=== PATIENT | female | born 1955 | race Caucasian/White ===

== ENCOUNTER 2023-04-29 08:02 | Inpatient (IN) | payer MEDICARE, OTHER ==
[2023-04-29] MEDS ORDERED: Bacitracin 1 PK ONE (08:26)
[2023-04-29 09:34] LABS: #Monocytes 0.7 10x3/uL (0.0-1.1); #Neutrophils 2.8 10x3/uL (1.5-8.4); %Basophils 0.4 % (0.0-2.0); %Eosinophils 0.2 % (0.0-6.0); %Lymphocytes 24.1 % (18.0-47.0); %Monocytes 15.4 % (0.0-10.0); %Neutrophils 59.7 % (40.0-75.0); Hematocrit 41.6 % (34.9-44.5); Hemoglobin 13.1 g/dL (12.0-15.5); Mean Corpuscular HGB CONC 31.5 g/dL (32.0-36.0); Mean Corpuscular Hemoglobin 28.1 pg (27.0-33.0); Mean Corpuscular Volume 89.1 fl (81.6-98.3); Mean Platelet Volume 10.5 fl (7.4-10.4); Platelet Count 190 10x3/uL (150-450); RBC Distribution Width 14.1 % (11.5-14.5); Red Blood Cell (RBC) Count 4.67 10x6/uL (3.90-5.03); White Blood Cell (WBC) Count 4.7 10x3/uL (3.5-10.5)
[2023-04-29 09:55] LABS: Anion Gap 15 mmol/L (10-20); BUN (Urea Nitrogen) 26 mg/dL (9.8-20.1); Calc. Creatinine Clearance 0 mL/min (70-130); Carbon Dioxide 30 mmol/L (23-31); Chloride 99 mmol/L (98-107); Estimated GFR 93; Potassium 4.7 mmol/L (3.5-5.1); Sodium 139 mmol/L (136-145)
[2023-04-29 09:56] LABS: ALT (SGPT) 20 U/L (8-55); AST (SGOT) 22 U/L (5-34); Albumin 3.8 g/dL (3.4-4.8); Alkaline Phosphatase 76 U/L (40-110); Bilirubin, Total 0.2 mg/dL (0.2-1.2); Calcium 9.2 mg/dL (7.6-10.4); Globulin 3.1 g/dL (2.4-3.5); Glucose 110 mg/dL (80-115); Protein, Total 6.9 g/dL (5.8-8.1)
[2023-04-29 10:11] LABS: Bilirubin Neg (Negative); Blood, Urine 25 (Negative); Glucose, Urine (Dipstick) Normal (Negative); Ketone, Urine Negative (Negative); Leukocyte 500 (Negative); Nitrite Positive (Negative); Protein, Urine (Dipstick) 15 mg/dl (Neg-Trace); Urobilinogen Normal mg/dL (Less than 2)
[2023-04-29 10:25] LABS: Clarity Cloudy (Clear)
[2023-04-29 10:30] LABS: CAUTI Indications for Culture Alt mental st,lethar; RBC/HPF 0-3 HPF (0-3); WBC/HPF 21-50 HPF (0-3)
[2023-04-29 10:31] LABS: Bacteria/HPF 4+ HPF (None Seen); Renal Epithelial 0-3 HPF (None Seen); Squamous Epithelial 0-3 HPF (0-3); Transitional Epithelial 0-3 HPF (None Seen)
[2023-04-29 10:32] LABS: Urine Culture Reflex Yes Yes
[2023-04-29] MEDS ORDERED: cefTRIAXone (ROCEPHIN) 2 GM VIAL ONE (10:42)
[2023-04-29] MEDS ORDERED: Ondansetron ODT 4 MG TAB PO PRN (13:04)
[2023-04-29] MEDS ORDERED: HYDROcodone/Acetaminophen 5/325 mg Tablet PO PRN (13:04)
[2023-04-29] MEDS ORDERED: Acetaminophen 650 MG Suppository PR PRN (13:04)
[2023-04-29] MEDS ORDERED: Senokot S 8.6-50 MG TAB PO PRN (13:04)
[2023-04-29 15:20] VITALS: BMI 11.2
[2023-04-29] MEDS: HYDROcodone/Acetaminophen 5/325 mg Tablet PO PRN ×2 (15:32→21:16)
[2023-04-29] MEDS ORDERED: QUEtiapine 25 MG TAB PO SCH ×2 (16:15→21:00)
[2023-04-29] MEDS ORDERED: QUEtiapine 25 MG TAB PER TUBE SCH (17:00)
[2023-04-29] MEDS: QUEtiapine 25 MG TAB PER TUBE SCH (20:35)
[2023-04-29] MEDS ORDERED: Famotidine 20 MG TAB PO SCH (21:00)
[2023-04-29] MEDS: Acetaminophen 325 MG TAB PO PRN (23:00)
[2023-04-30 04:31] LABS: Anion Gap 17 mmol/L (10-20); BUN (Urea Nitrogen) 17 mg/dL (9.8-20.1); Calc. Creatinine Clearance 36 mL/min (70-130); Calcium 8.5 mg/dL (7.8-10.44); Carbon Dioxide 23 mmol/L (23-31); Chloride 104 mmol/L (98-107); Estimated GFR 95; Glucose 103 mg/dL (80-115); Potassium 5.2 mmol/L (3.5-5.1); Sodium 139 mmol/L (136-145)
[2023-04-30 04:53] LABS: #Neutrophils 2.3 10x3/uL (1.5-8.4); %Basophils 0.8 % (0.0-2.0); %Eosinophils 0.8 % (0.0-6.0); %Lymphocytes 32.2 % (18.0-47.0); %Monocytes 19.7 % (0.0-10.0); %Neutrophils 44.8 % (40.0-75.0); Hemoglobin 11.5 g/dL (12.0-15.5); Mean Corpuscular HGB CONC 31.9 g/dL (32.0-36.0); Mean Corpuscular Volume 87.6 fl (81.6-98.3); Mean Platelet Volume 11.6 fl (7.4-10.4); Platelet Count 168 10x3/uL (150-450); RBC Distribution Width 13.9 % (11.5-14.5); Red Blood Cell (RBC) Count 4.11 10x6/uL (3.90-5.03); White Blood Cell (WBC) Count 5.2 10x3/uL (3.5-10.5)
[2023-04-30] MEDS: HYDROcodone/Acetaminophen 5/325 mg Tablet PO PRN ×2 (08:31→18:49)
[2023-04-30] MEDS: cefTRIAXone\\ROCEPHIN 1 GM in Sodium Chloride 0.9% 100 ML IVPB SCH (11:48)
[2023-04-30] MEDS: Valproate Sodium 250 mg/5 ml UD Cup PO SCH ×2 (16:33→23:46)
[2023-04-30] MEDS: QUEtiapine 100 MG TAB PO SCH ×2 (16:34→23:37)
[2023-04-30] MEDS: Acetaminophen 325 MG TAB PO PRN (16:34)
[2023-04-30] MEDS: Methocarbamol 500 MG TAB PO SCH ×2 (18:14→23:45)
[2023-04-30] MEDS ORDERED: Famotidine 20 MG TAB PO SCH (21:00)
[2023-04-30] MEDS: QUEtiapine 25 MG TAB PER TUBE SCH (23:37)
[2023-04-30] MEDS: Lacosamide 50 mg Tablet PO SCH (23:46)
[2023-05-01 07:05] LABS: #Eosinphils 0.1 10x3/uL (0.0-0.5); #Monocytes 0.3 10x3/uL (0.0-1.1); #Neutrophils 1.4 10x3/uL (1.5-8.4); %Basophils 0.7 % (0.0-2.0); %Eosinophils 2.1 % (0.0-6.0); %Lymphocytes 36.1 % (18.0-47.0); %Monocytes 11.8 % (0.0-10.0); Hematocrit 36.1 % (34.9-44.5); Hemoglobin 11.2 g/dL (12.0-15.5); Mean Corpuscular Hemoglobin 27.7 pg (27.0-33.0); Mean Corpuscular Volume 89.4 fl (81.6-98.3); Mean Platelet Volume 10.9 fl (7.4-10.4); Platelet Count 155 10x3/uL (150-450); RBC Distribution Width 13.8 % (11.5-14.5); Red Blood Cell (RBC) Count 4.04 10x6/uL (3.90-5.03); White Blood Cell (WBC) Count 2.9 10x3/uL (3.5-10.5)
[2023-05-01 07:13] LABS: Anion Gap 12 mmol/L (10-20); BUN (Urea Nitrogen) 15 mg/dL (9.8-20.1); Calc. Creatinine Clearance 37 mL/min (70-130); Calcium 8.5 mg/dL (7.8-10.44); Carbon Dioxide 28 mmol/L (23-31); Chloride 103 mmol/L (98-107); Estimated GFR 96; Glucose 89 mg/dL (80-115); Potassium 4.3 mmol/L (3.5-5.1); Sodium 139 mmol/L (136-145)
[2023-05-01] MEDS: Valproate Sodium 250 mg/5 ml UD Cup PO SCH ×3 (09:39→21:33)
[2023-05-01] MEDS: Calcium Carbonate 500 MG ChewTAB PO SCH (09:39)
[2023-05-01] MEDS: QUEtiapine 100 MG TAB PO SCH ×3 (09:39→21:34)
[2023-05-01] MEDS: cefTRIAXone\\ROCEPHIN 1 GM in Sodium Chloride 0.9% 100 ML IVPB SCH (10:00)
[2023-05-01] MEDS ORDERED: Lorazepam 2 MG/ML VIAL SLOW IVP PRN (10:32)
[2023-05-01] MEDS ORDERED: Meropenem 1 GM in Sodium Chloride 0.9% 100 ML IVPB SCH ×2 (14:00→15:00)
[2023-05-01] MEDS: Lacosamide 50 mg Tablet PO SCH ×2 (14:34→22:56)
[2023-05-01] MEDS: Clopidogrel Bisulfate 75 MG TAB PO SCH (14:34)
[2023-05-01] MEDS: Methocarbamol 500 MG TAB PO SCH ×3 (14:35→21:34)
[2023-05-01] MEDS: QUEtiapine 25 MG TAB PER TUBE SCH (21:34)
[2023-05-02] MEDS: Meropenem 1 GM in Sodium Chloride 0.9% 100 ML IVPB SCH ×2 (01:05→14:05)
[2023-05-02 05:29] LABS: Anion Gap 11 mmol/L (10-20); BUN (Urea Nitrogen) 10 mg/dL (9.8-20.1); Calc. Creatinine Clearance 37 mL/min (70-130); Calcium 8.8 mg/dL (7.8-10.44); Carbon Dioxide 29 mmol/L (23-31); Chloride 105 mmol/L (98-107); Estimated GFR 96; Glucose 78 mg/dL (80-115); Potassium 4.4 mmol/L (3.5-5.1); Sodium 141 mmol/L (136-145)
[2023-05-02 05:39] LABS: #Monocytes 0.5 10x3/uL (0.0-1.1); #Neutrophils 1.5 10x3/uL (1.5-8.4); %Basophils 0.6 % (0.0-2.0); %Eosinophils 0.9 % (0.0-6.0); %Monocytes 15.1 % (0.0-10.0); %Neutrophils 44.4 % (40.0-75.0); Hematocrit 40.4 % (34.9-44.5); Hemoglobin 12.7 g/dL (12.0-15.5); Mean Corpuscular HGB CONC 31.4 g/dL (32.0-36.0); Mean Corpuscular Hemoglobin 28.1 pg (27.0-33.0); Mean Corpuscular Volume 89.4 fl (81.6-98.3); Platelet Count 177 10x3/uL (150-450); RBC Distribution Width 13.9 % (11.5-14.5); Red Blood Cell (RBC) Count 4.52 10x6/uL (3.90-5.03); White Blood Cell (WBC) Count 3.3 10x3/uL (3.5-10.5)
[2023-05-02] MEDS: Lacosamide 50 mg Tablet PO SCH ×2 (10:33→21:34)
[2023-05-02] MEDS: QUEtiapine 100 MG TAB PO SCH ×3 (10:34→21:34)
[2023-05-02] MEDS: Valproate Sodium 250 mg/5 ml UD Cup PO SCH ×3 (10:34→21:35)
[2023-05-02] MEDS: Clopidogrel Bisulfate 75 MG TAB PO SCH (10:34)
[2023-05-02] MEDS: Calcium Carbonate 500 MG ChewTAB PO SCH (10:34)
[2023-05-02] MEDS: Methocarbamol 500 MG TAB PO SCH ×3 (14:04→21:35)
[2023-05-02] MEDS: Acetaminophen 325 MG TAB PO PRN (16:17)
[2023-05-03] MEDS: Meropenem 1 GM in Sodium Chloride 0.9% 100 ML IVPB SCH ×2 (01:10→13:22)
[2023-05-03 05:30] LABS: #Eosinphils 0.1 10x3/uL (0.0-0.5); #Monocytes 0.4 10x3/uL (0.0-1.1); #Neutrophils 2.7 10x3/uL (1.5-8.4); %Basophils 0.5 % (0.0-2.0); %Eosinophils 2.6 % (0.0-6.0); %Lymphocytes 22.4 % (18.0-47.0); %Monocytes 9.1 % (0.0-10.0); %Neutrophils 65.2 % (40.0-75.0); Hematocrit 39.5 % (34.9-44.5); Hemoglobin 12.7 g/dL (12.0-15.5); Mean Corpuscular HGB CONC 32.2 g/dL (32.0-36.0); Mean Corpuscular Hemoglobin 28.3 pg (27.0-33.0); Mean Platelet Volume 10.4 fl (7.4-10.4); Platelet Count 188 10x3/uL (150-450); RBC Distribution Width 13.8 % (11.5-14.5); Red Blood Cell (RBC) Count 4.49 10x6/uL (3.90-5.03); White Blood Cell (WBC) Count 4.2 10x3/uL (3.5-10.5)
[2023-05-03 05:45] LABS: Anion Gap 14 mmol/L (10-20); BUN (Urea Nitrogen) 17 mg/dL (9.8-20.1); Calc. Creatinine Clearance 36 mL/min (70-130); Calcium 8.9 mg/dL (7.8-10.44); Carbon Dioxide 30 mmol/L (23-31); Chloride 102 mmol/L (98-107); Estimated GFR 95; Glucose 83 mg/dL (80-115); Potassium 4.5 mmol/L (3.5-5.1); Sodium 141 mmol/L (136-145)
[2023-05-03] MEDS: HYDROcodone/Acetaminophen 5/325 mg Tablet PO PRN ×2 (05:53→13:12)
[2023-05-03] MEDS: Clopidogrel Bisulfate 75 MG TAB PO SCH (08:46)
[2023-05-03] MEDS: Calcium Carbonate 500 MG ChewTAB PO SCH (08:46)
[2023-05-03] MEDS: Methocarbamol 500 MG TAB PO SCH ×3 (08:47→21:00)
[2023-05-03] MEDS: Valproate Sodium 250 mg/5 ml UD Cup PO SCH ×3 (08:55→20:58)
[2023-05-03] MEDS ORDERED: Polyethylene Glycol 3350 17 GM Packet PO SCH (09:00)
[2023-05-03] MEDS ORDERED: QUEtiapine 100 MG TAB PO SCH (09:00)
[2023-05-03] MEDS: Lacosamide 50 mg Tablet PO SCH ×2 (09:08→20:58)
[2023-05-03] MEDS: QUEtiapine 100 MG TAB PO SCH ×2 (14:42→21:00)
[2023-05-03] MEDS: Acetaminophen 325 MG TAB PO PRN (20:59)
[2023-05-04] MEDS: Meropenem 1 GM in Sodium Chloride 0.9% 100 ML IVPB SCH ×2 (01:07→12:52)
[2023-05-04] MEDS: Ondansetron PF 4 MG/2 ML Vial IVP PRN ×2 (02:17→12:51)
[2023-05-04] MEDS: Acetaminophen 325 MG TAB PO PRN ×5 (02:19→22:07)
[2023-05-04 05:31] LABS: #Eosinphils 0.2 10x3/uL (0.0-0.5); #Monocytes 0.4 10x3/uL (0.0-1.1); #Neutrophils 2.5 10x3/uL (1.5-8.4); %Basophils 0.2 % (0.0-2.0); %Eosinophils 5.4 % (0.0-6.0); %Lymphocytes 22.2 % (18.0-47.0); %Monocytes 9.6 % (0.0-10.0); %Neutrophils 62.4 % (40.0-75.0); Hematocrit 36.7 % (34.9-44.5); Hemoglobin 11.3 g/dL (12.0-15.5); Mean Corpuscular HGB CONC 30.8 g/dL (32.0-36.0); Mean Corpuscular Hemoglobin 27.4 pg (27.0-33.0); Mean Corpuscular Volume 89.1 fl (81.6-98.3); Mean Platelet Volume 10.1 fl (7.4-10.4); Platelet Count 172 10x3/uL (150-450); RBC Distribution Width 13.8 % (11.5-14.5); Red Blood Cell (RBC) Count 4.12 10x6/uL (3.90-5.03); White Blood Cell (WBC) Count 4.1 10x3/uL (3.5-10.5)
[2023-05-04 05:34] LABS: Anion Gap 14 mmol/L (10-20); BUN (Urea Nitrogen) 13 mg/dL (9.8-20.1); Calc. Creatinine Clearance 36 mL/min (70-130); Calcium 8.7 mg/dL (7.8-10.44); Carbon Dioxide 31 mmol/L (23-31); Chloride 102 mmol/L (98-107); Estimated GFR 95; Glucose 80 mg/dL (80-115); Magnesium 2.1 mg/dL (1.6-2.6); Potassium 4.6 mmol/L (3.5-5.1); Sodium 142 mmol/L (136-145)
[2023-05-04 05:36] LABS: Phosphorus 3.5 mg/dL (2.3-4.7)
[2023-05-04] MEDS: Lacosamide 50 mg Tablet PO SCH ×2 (07:28→22:09)
[2023-05-04] MEDS: Valproate Sodium 250 mg/5 ml UD Cup PO SCH ×3 (07:28→22:07)
[2023-05-04] MEDS: Calcium Carbonate 500 MG ChewTAB PO SCH (07:28)
[2023-05-04] MEDS: Clopidogrel Bisulfate 75 MG TAB PO SCH (07:29)
[2023-05-04] MEDS: Methocarbamol 500 MG TAB PO SCH ×3 (07:29→22:09)
[2023-05-04] MEDS: Folic Acid 1 MG TAB PER TUBE SCH (07:29)
[2023-05-04] MEDS: QUEtiapine 100 MG TAB PO SCH ×3 (07:29→22:09)
[2023-05-04] MEDS: Cyanocobalamin (Vitamin B-12) 1,000 MCG TAB PER TUBE SCH (07:30)
[2023-05-04] MEDS: Heparin 5,000 UNITS/ML VIAL SC SCH ×2 (07:46→22:10)
[2023-05-04] MEDS: Lorazepam 0.5 MG TAB PO PRN (10:46)
[2023-05-04] MEDS: Thiamine HCl 200 MG/2 ML VIAL SLOW IVP SCH (12:51)
[2023-05-05] MEDS: Meropenem 1 GM in Sodium Chloride 0.9% 100 ML IVPB SCH ×2 (01:20→11:34)
[2023-05-05] MEDS: Acetaminophen 325 MG TAB PO PRN (02:14)
[2023-05-05 05:22] LABS: #Eosinphils 0.2 10x3/uL (0.0-0.5); #Monocytes 0.3 10x3/uL (0.0-1.1); #Neutrophils 1.5 10x3/uL (1.5-8.4); %Basophils 0.6 % (0.0-2.0); %Eosinophils 6.4 % (0.0-6.0); %Lymphocytes 43.1 % (18.0-47.0); %Neutrophils 40.6 % (40.0-75.0); Hematocrit 36.1 % (34.9-44.5); Hemoglobin 11.4 g/dL (12.0-15.5); Mean Corpuscular HGB CONC 31.6 g/dL (32.0-36.0); Mean Corpuscular Hemoglobin 27.9 pg (27.0-33.0); Mean Corpuscular Volume 88.5 fl (81.6-98.3); Mean Platelet Volume 10.2 fl (7.4-10.4); Platelet Count 183 10x3/uL (150-450); RBC Distribution Width 13.7 % (11.5-14.5); Red Blood Cell (RBC) Count 4.08 10x6/uL (3.90-5.03); White Blood Cell (WBC) Count 3.6 10x3/uL (3.5-10.5)
[2023-05-05 05:40] LABS: Anion Gap 12 mmol/L (10-20); BUN (Urea Nitrogen) 13 mg/dL (9.8-20.1); Calc. Creatinine Clearance 35 mL/min (70-130); Calcium 8.9 mg/dL (7.8-10.44); Carbon Dioxide 31 mmol/L (23-31); Chloride 103 mmol/L (98-107); Estimated GFR 94; Glucose 61 mg/dL (80-115); Potassium 4.5 mmol/L (3.5-5.1); Sodium 141 mmol/L (136-145)
[2023-05-05] MEDS: Calcium Carbonate 500 MG ChewTAB PO SCH (08:06)
[2023-05-05] MEDS: Lorazepam 0.5 MG TAB PO PRN ×2 (08:06→13:44)
[2023-05-05] MEDS: QUEtiapine 100 MG TAB PO SCH ×2 (08:06→13:43)
[2023-05-05] MEDS: Heparin 5,000 UNITS/ML VIAL SC SCH (08:06)
[2023-05-05] MEDS: Folic Acid 1 MG TAB PER TUBE SCH (08:06)
[2023-05-05] MEDS: Valproate Sodium 250 mg/5 ml UD Cup PO SCH ×2 (08:06→13:43)
[2023-05-05] MEDS: Cyanocobalamin (Vitamin B-12) 1,000 MCG TAB PER TUBE SCH (08:06)
[2023-05-05] MEDS: Clopidogrel Bisulfate 75 MG TAB PO SCH (08:06)
[2023-05-05] MEDS: Lacosamide 50 mg Tablet PO SCH (08:08)
[2023-05-05] MEDS: Methocarbamol 500 MG TAB PO SCH ×2 (08:10→13:43)
[2023-05-05] MEDS: Thiamine HCl 200 MG/2 ML VIAL SLOW IVP SCH (08:10)
[2023-05-05 15:52] VITALS: BP 115/64; TEMP 98.2
== END 2023-05-05 20:23 | DRG 689 ==
LOC: CSHERS 08:02 → CSHIMCU 11:03 → CSHTELE 04-30 16:02 → OBSVTOIN 05-01 10:32
PROVIDERS: ADMIT Internal Medicine; ATTEND Internal Medicine
PROC: 02HV33Z Insertion of Infusion Device into Superior Vena Cava, Percutaneous Approach (ICD-10-PCS; principal; 2023-05-05)
PROC: B548ZZA Ultrasonography of Superior Vena Cava, Guidance (ICD-10-PCS; 2023-05-05)
DX: N39.0 Urinary tract infection, site not specified (principal); E43 Unspecified severe protein-calorie malnutrition; G93.41 Metabolic encephalopathy; S02.85XA Fracture of orbit, unspecified, initial encounter for closed fracture; S22.089A Unspecified fracture of T11-T12 vertebra, initial encounter for closed fracture; R64 Cachexia; Z68.1 Body mass index [BMI] 19.9 or less, adult; Z16.24 Resistance to multiple antibiotics; Z66 Do not resuscitate; F03.90 Unspecified dementia, unspecified severity, without behavioral disturbance, psychotic disturbance, mood disturbance, and anxiety; F31.9 Bipolar disorder, unspecified; I25.10 Atherosclerotic heart disease of native coronary artery without angina pectoris; I10 Essential (primary) hypertension; M54.6 Pain in thoracic spine; I69.391 Dysphagia following cerebral infarction; R13.10 Dysphagia, unspecified; M81.0 Age-related osteoporosis without current pathological fracture; E87.5 Hyperkalemia; B96.89 Other specified bacterial agents as the cause of diseases classified elsewhere; R91.1 Solitary pulmonary nodule; E86.0 Dehydration; Z88.1 Allergy status to other antibiotic agents; Z88.5 Allergy status to narcotic agent; Z88.8 Allergy status to other drugs, medicaments and biological substances; Z88.6 Allergy status to analgesic agent; Z79.899 Other long term (current) drug therapy; Z79.02 Long term (current) use of antithrombotics/antiplatelets; Z93.1 Gastrostomy status; D53.9 Nutritional anemia, unspecified; B96.1 Klebsiella pneumoniae [K. pneumoniae] as the cause of diseases classified elsewhere; E16.2 Hypoglycemia, unspecified; R62.7 Adult failure to thrive
CPT/HCPCS: 36415; 36416; 36569; 51701; 70450; 70551; 71045; 72125; 80048; 80053; 81001; 83605; 83735; 84100; 84443; 85025; 87040; 87077; 87086; 87186; 93005; 94760; 94762; 96361; 96365; 96366; 96372; 96376; C1751; G0378; J0696; J1644; J1650; J2060; J2185; J2405; J3411; J3490